=== PATIENT | female | born 1985 | race Caucasian/White ===

== ENCOUNTER → 2017-07-04 | Outpatient (CLI) | payer OTHER | LOC: FIMAGING 10:10 | PROVIDERS: ATTEND Obstetrics & Gynecology | DX: Z34.02 Encounter for supervision of normal first pregnancy, second trimester (principal); Z3A.22 22 weeks gestation of pregnancy; Z82.79 Family history of other congenital malformations, deformations and chromosomal abnormalities ==

== ENCOUNTER 2017-09-11 06:45 | Observation (INO) | payer OTHER ==
--- NOTE | 2017-09-11 18:55 | GPROG ---
[f rep st] PROGRESS NOTE DATE OF SERVICE: 09/11/2017 Patient is a 32-year-old 1, para 0, who is 32 weeks' gestation, who called this morning compl aining of increased cramping and menstrual-like cramping. She said she had several glasses of water, but the pain is not improved. The patient presented to Labor and Delivery for evaluation. She is n oted to have some contractions on the monitor, which were palpating very mild. The patient was barel y able to feel them. She says that she and her were in a 7-hour class yesterday for classes, and she did not drink much water, and her idea of drinking lots of fluid was having 1 big 8-ounce glass of water since yesterday. status was reassuring with category 1 heart tracing. A urinalysis was sent, and culture. A speculum exam and vaginal exam were performed. Fet al fibronectin was collected but not sent because her cervix was long, closed and posterior. We had a long discussion about options of in-house p.o. hydration and observation versus going home, and the patient elected to go home. precautions and kick counts were reviewed with the patient. Sean newman has a followup appointment tomorrow, and she will call us later on tonight if her contractions do not resolve or significantly reduce. /[id number]/MODL
== END 2017-09-11 08:22 | disposition home or self-care (01) ==
LOC: FLD 06:45
PROVIDERS: ADMIT Obstetrics & Gynecology; ATTEND Obstetrics & Gynecology
DX: O62.9 Abnormality of forces of labor, unspecified (principal); Z3A.32 32 weeks gestation of pregnancy
CPT/HCPCS: 59025; G0378

== ENCOUNTER 2017-11-03 20:45 | Inpatient (IN) | payer OTHER ==
[2017-11-03 22:35] LABS: PLATELET COUNT 142 10^3/uL (150-400)
[2017-11-03] MEDS ORDERED: LIDOCAINE 1% 300 MG/30 ML SDV SC PRN (23:30)
[2017-11-03] MEDS ORDERED: EPSOM SALT 454 GM TP PRN (23:30)
[2017-11-03] MEDS ORDERED: IBUPROFEN 600 MG TAB PO PRN (23:30)
[2017-11-03] MEDS ORDERED: OXYTOCIN/RINGERS LACTATE 1,000 ML IV PRN (23:30)
[2017-11-03] MEDS ORDERED: OLIVE OIL 118 ML BTL MISC PRN (23:30)
[2017-11-03] MEDS ORDERED: TERBUTALINE SULFATE 1 MG/ML VIAL IV PRN (23:30)
[2017-11-03] MEDS ORDERED: MISOPROSTOL 200 MCG TAB PR PRN (23:30)
[2017-11-04] MEDS ORDERED: OLIVE OIL 118 ML BTL ONE
[2017-11-04] MEDS ORDERED: MISOPROSTOL 200 MCG TAB ONE
[2017-11-04] MEDS ORDERED: AMMONIA AROMATIC 1 EACH AMP IH ONE
[2017-11-04] MEDS ORDERED: TERBUTALINE SULFATE 1 MG/ML VIAL ONE
[2017-11-04] MEDS ORDERED: OXYTOCIN 10 UNIT/ML VIAL ONE
[2017-11-04] MEDS ORDERED: LIDOCAINE 1% 300 MG/30 ML SDV ONE
[2017-11-04] MEDS ORDERED: MISOPROSTOL 50 MCG CAP PO ONE ×3 (00:15→04:00)
[2017-11-04] MEDS: LR 1,000 ML IV PRN ×2 (02:58→07:28)
[2017-11-04] MEDS ORDERED: AMPICILLIN SODIUM 2 GM in NS 100 ML IV ONE (05:00)
--- NOTE | 2017-11-04 05:31 | OBPROG ---
Labor Progress Note Assessment/Plan: Assessment: 32 y/o @ 40 3/7 weeks for IOL secondary to elevated BPs Cat II strip Meconium-stained fluid GBS+ Plan: Called in by Rn @0330 re: strip with minimal variability and intermittent late decels s/p Cytotec 100 mcg PO at 0030 Pt with SROM-meconium stained fluid at 0430 Reviewed strip-Cat II with periods of minimal variability, intermittent late decels resuscitation performed with IVFs wide open, oxygen applied and pt to left side with improvement in variability Pt reexamined after SROM and still noted to be /-2 Called Anesthesia in for possible c/s if continued minimal variability and late decels BPs stable while pt laying down; asymptomatic at this time PIH labs wnl; thromboctyopenia; P:C 0.3 Will cont to closely monitor the strip, low threshold for c/s since remote from delivery 11/04/17 05:46 Subjective/Intrapartum Course: 11/04/17 05:31 Pt seen and examined. She states pain with ctx's 3-4/10. Denies any BOOTH's, visual changes and states RUQ pain improved since baby boy moved down in pelvis. Good FM noted. Objective: 11/03/17 22:21 11/03/17 22:21 Patient ABO/Rh O POSITIVE 11/03/17 22:21 Uric Acid 5.6 mg/dL (2.5-6.8) 11/03/17 22:21 Total Bilirubin 0.3 mg/dL (0.1-1.4) 11/03/17 22:21 Conjugated Bilirubin 0.3 mg/dL (0.0-0.5) 11/03/17 22:21 Unconjugated Bilirubin 0.0 mg/dL (0.0-1.1) 11/03/17 22:21 AST 14 IU/L (14-46) 11/03/17 22:21 ALT 21 IU/L (9-52) 11/03/17 22:21 Lactate Dehydrogenase 347 IU/L (313-618) 11/03/17 22:21 - SVE Dilation (cm): 1 Effacement (%): 50 Station: -2 Membranes: SROM Amniotic Fluid Color: Meconium Stained - Contraction Pattern Assessment Current Contraction Pattern: Regular (q 2-3 min) - FHR Assessment Martinez FHR (bpm): 145 FHR Pattern Variability: Moderate FHR Category: 2 (periods of minimal variability; intermittent late decels noted) - AP Antepartum Course: 11/04/17 05:41 IUP @ 40 2/7 wks with c/o +brownish LOF, elev BPs on admission 160/100's; asymptomatic. Transfer of care at 20+weeks from [facility]. +GBS - Physical Exam Estimated Weight: 2501-3400g Oxytocin Orders Assessment - Pre-Induction/Augmentation Assessment Gestational Age: 40 week(s) and 2 day(s) ICD10 Worksheet Patient Problems: Problems Problem Status Onset Elevated blood pressure complicating in third trimester, antepartum Acute GBS (group B Streptococcus carrier), +RV culture, currently Acute Meconium in amniotic fluid affecting management of mother in third trimester Acute - ICD10 Problem Qualifiers (1) Elevated blood pressure complicating in third trimester, antepartum (2) Meconium in amniotic fluid affecting management of mother in third trimester (3) GBS (group B Streptococcus carrier), +RV culture, currently
--- NOTE | 2017-11-04 06:09 | GHP ---
[f rep st] HISTORY AND PHYSICAL DATE OF ADMISSION: 11/02/2017 ADMITTING DIAGNOSIS: 1. Intrauterine at 40 weeks and 2 days. 2. Leakage of fluid. 3. Elevated blood pressures. HISTORY OF PRESENT ILLNESS: The patient is a 32-year-old, 1, para 0, at 40 and 3 weeks, at 40 2/7 weeks with an estimated due date of 11/01/2017, by last menstrual period 02/04/2017, and consistent with a first-trimester ultrasound. Patient presents to Labor and Delivery with complaints of leakage of fluid. The patient states she was examined about 2 days ago in the office and was told she would have some spotting and cramping. She admits to losing her mucus plug, but states that she had a gush of fluid that was blood tinged earlier today, and then just about an hour ago also noticed a gush of fluid- brownish that was "enough to saturate her underwear." No odor noted. Denies any vaginal bleeding or contractions. States there is good movement. The patient was a transfer of care at 20 weeks, from [facility] in [place]. has been complicated by a placenta previa that was diagnosed in the first trimester and resolved on followup ultrasound. Father of the baby has a congenital heart defect, status post repair. The patient did have a echo that was negative at 22 weeks. The patient states she had a flu vaccine January 2017. NIPT was negative. The patient develop anemia of , and is tolerating iron. The patient received Tdap. At 36 weeks, the patient was complaining of pedal edema and RUQ pain. Denied any headaches or visual changes. PIH labs were checked as well as P to C ratio. All blood work was negative except for thrombocytopenia. P:C was 0.3. Blood pressures throughout the were normal: 90s to 1-teens over 60s to 70s with the P to C ratio 0.3. GBS culture is positive. PAST OB HISTORY: This is patient's 1st . PAST CERTIFIED NURSING ASSISTANT HISTORY: Age of menarche 12. Cycles are every 26-28 days for 5 days. LMP 01/25/2017. Positive test 02/24/2017. The patient does have a history of abnormal Pap smear, +HPV in 2006 and had a colposcopy, but no treatment. Abnormal pap-ASCUS, -HPV during this . 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 No exposure to any other STDs. CURRENT MEDICATIONS: Include [id number] vitamins, iron supplement. ALLERGIES: Sulfa and erythromycin. PAST MEDICAL HISTORY: Migraines with aura. PAST SURGICAL HISTORY: Unremarkable. She had a fractured right elbow at 5 years of age. FAMILY HISTORY: Maternal grandmother with a stroke. Father with depression, recovering alcoholic. Paternal aunt diagnosed with breast cancer in her 30s, in her 40s. Maternal aunt with breast cancer diagnosed in 60s. SOCIAL HISTORY: Patient is and she lives with her . She denies any current alcohol, tobacco, or illicit drug use. REVIEW OF SYSTEMS: A 10-point review of systems is negative. Pertinent positives noted in HPI. LABS: O positive. Antibody negative. H and H in 1st trimester 37.4 and 13. Rubella immune. RPR nonreactive. Hepatitis B surface antigen negative. HIV negative. Urine culture negative. NIPT negative. Single AFP negative. One hour Glucola normal. Hematocrit 37. GBS culture is positive. PHYSICAL EXAMINATION: VITAL SIGNS: The patient is afebrile at 37.2. On admission, heart rate 76, respiratory rate 18, and elevated blood [id number]/ 102, 146/100, 129/74, 164/115. GENERAL: Well-nourished, well-developed, female, alert oriented x3. No apparent distress. NEUROMUSCULAR: Grossly intact. SKIN : Warm and dry without rashes. CARDIOVASCULAR: Regular rate and rhythm. LUNGS : Clear to auscultation bilaterally. ABDOMEN: Gravid, soft, nontender, nondistended. PELVIC: Noted to be 1 cm dilated, 50%, -2 station, and not grossly ruptured. AmniSure is negative. EXTREMITIES: Normal to inspection with mild edema. +1 reflexes. No clonus. heart tracing on admission, Category 1 strip with a baseline 140 beats per minute. Positive accelerations. No decelerations. Moderate variability. On toco, there are occasional contractions. LABORATORY DATA: H and H 13/36.5, platelets 142. Uric acid 5.6. AST 14, ALT 21. LDH 347. P to C ratio of 0.2. ASSESSMENT/PLAN: Patient is a 32-year-old, 1, para 0, at 40 weeks and 2 days with elevated blood pressures, not ruptured. 1. Admit to Labor and Delivery. 2. Patient does not meet criteria for GHTN since elevated BPs not 4 hours apart. PIH labs all normal except for thrombocytopenia and P to C ratio is 0.2; pt is asymptomatic so no preeclampsia at this time. 3. Plan for IOL secondary to elevated BPs; Cytotec 100 mcg q.4 hours orally for cervical ripening. 4. GBS is positive. Once patient is active will treat with ampicillin for prophylaxis. 5. Will continue to closely monitor the patient's blood pressures and symptoms. /[id number]/MODL MTDD
[2017-11-04] MEDS ORDERED: fentaNYL 200 MCG, BUPIVACAINE 0.5% 20 ML in NS 100 ML EP SCH (07:30)
[2017-11-04] MEDS ORDERED: fentaNYL 100 MCG/2 ML INJ ONE ×3 (07:33→19:24)
[2017-11-04] MEDS ORDERED: BUPIVACAINE 0.25% 30 ML SDV ONE ×2 (07:34→15:11)
[2017-11-04] MEDS ORDERED: LIDO/EPI 1% **for epidural** 30 ML SDV ONE (07:55)
[2017-11-04] MEDS ORDERED: PHENYLEPHRINE HCL 100 MCG/ML SYR IVP PRN (08:23)
[2017-11-04] MEDS ORDERED: ONDANSETRON 4 MG/2 ML VIAL IVP PRN ×2 (08:23→19:56)
--- NOTE | 2017-11-04 08:23 | PREANESOB ---
Obstetric Pre-Anesthesia Info - General Info Proposed Procedure: virginie : 1 Para: 0 BENITEZ: 11/01/17 Gestational Age: 40 week(s) and 2 day(s) - Info Status: Full Term Monitors: External FHR Pattern: Non-reassuring - Labor Status Cervical Dilation per last OB SVE: 1 Station per last OB SVE: -2 Amniotic Fluid Color: Meconium Stained Indications for Labor Analgesia: Augmentation of Labor, Induction of Labor, Pain Control, Possible Indications for Current Section: Non-reas. Status Labor Epidural: Yes Anesthesia Allergies/Adverse Reactions: Allergy/AdvReac Type Severity Reaction Status Date / Time erythromycin base Allergy Verified 11/03/17 21:33 Sulfa (Sulfonamide Allergy Verified 11/03/17 21:33 Antibiotics) Home Medications: Medication Instructions Recorded Iron 11/04/17 11/04/17 Visit Medications: Generic Name Dose Route Start Last Admin Trade Name Freq PRN Reason Stop Dose Admin Ampicillin Sodium 1 gm/ Sodium 100 mls @ 200 mls/hr 11/04/17 09:00 Chloride IV 12/04/17 08:59 Q4H [facility] Protocol Lactated Ringer's 1,000 mls @ 0 mls/hr 11/03/17 23:30 11/04/17 07:28 Lr IV 11/04/17 23:29 1,000 mls PRN PRN Administration SEE PROTOCOL CONDITIONS Protocol Per Protocol Oxytocin/Lactated Ringer's 1,000 mls @ 125 mls/hr 11/03/17 23:30 Pitocin 20 Units/Lr (Premix) IV PRN PRN Post bleeding Fentanyl 200 mcg/ Bupivacaine 100 mls @ 0 mls/hr 11/04/17 07:30 HCl 20 ml/ Sodium Chloride EP 11/14/17 07:29 CONT [facility] Protocol As Directed Ibuprofen 600 mg 11/03/17 23:30 Motrin PO ONCE PRN post , pain Lidocaine HCl 300 mg 11/03/17 23:30 Lidocaine Hcl 1% SC 05/02/18 23:29 ONCE PRN episiotomy Magnesium Sulfate 454 gm 11/03/17 23:30 Epsom Salt TP 05/02/18 23:29 Q1H PRN perineal discomfort Misoprostol 800 - 1,000 mcg 11/03/17 23:30 Cytotec MN ONCE PRN Vaginal Atony/Bleeding Calvin Oil 118 ml 11/03/17 23:30 Sweet Oil MISC 05/02/18 23:29 ONCE PRN perineal massage Terbutaline Sulfate 0.25 mg 11/03/17 23:30 Brethine IV 05/02/18 23:29 ONCE PRN Tachysystole Discontinued Medications Generic Name Dose Route Start Last Admin Trade Name Freddy PRN Reason Stop Dose Admin Ammonia (Aromatic Spirit) Confirm 11/04/17 00:00 Ammonia Aromatic Administered 11/04/17 00:01 Dose 1 each IH .STK-MED ONE Bupivacaine HCl Confirm 11/04/17 07:34 Sensorcaine 0.25% Sdv Administered 11/04/17 07:35 Dose 30 ml .ROUTE .STK-MED ONE Fentanyl Confirm 11/04/17 07:33 Sublimaze Administered 11/04/17 07:34 Dose 100 mcg .ROUTE .STK-MED ONE Ampicillin Sodium 2 gm/ Sodium 110 mls @ 220 mls/hr 11/04/17 05:00 11/04/17 04:49 Chloride IV 11/04/17 05:29 110 mls ONCE ONE Administration Protocol Lidocaine HCl Confirm 11/04/17 00:00 Lidocaine Hcl 1% Administered 11/04/17 00:01 Dose 300 mg .ROUTE .STK-MED ONE Lidocaine/Epinephrine Confirm 11/04/17 07:55 Xylocaine 1%-Epi 1:200,000 Administered 11/04/17 07:56 Dose 30 ml .ROUTE .STK-MED ONE Misoprostol 50 mcg 11/04/17 00:00 11/04/17 00:39 Cytotec PO 11/04/17 00:01 Not Given ONCE ONE Misoprostol 50 mcg 11/04/17 04:00 11/04/17 05:16 Cytotec PO 11/04/17 04:01 Not Given ONCE ONE Misoprostol Confirm 11/04/17 00:00 Cytotec Administered 11/04/17 00:01 Dose 1,000 mcg .ROUTE .STK-MED ONE Misoprostol 100 mcg 11/04/17 00:15 11/04/17 00:33 Cytotec PO 11/04/17 00:16 100 mcg ONCE ONE Administration Calvin Oil Confirm 11/04/17 00:00 Sweet Oil Administered 11/04/17 00:01 Dose 118 ml .ROUTE .STK-MED ONE Oxytocin Confirm 11/04/17 00:00 Pitocin Administered 11/04/17 00:01 Dose 40 unit .ROUTE .STK-MED ONE Terbutaline Sulfate Confirm 11/04/17 00:00 Brethine Administered 11/04/17 00:01 Dose 1 mg .ROUTE .STK-MED ONE - Vital Signs Height/Weight (Nursing): Height 5 ft 4 in Weight 83.007 kg Labs: 11/03/17 22:21 11/03/17 22:21 Patient ABO/Rh O POSITIVE 11/03/17 22:21 Uric Acid 5.6 mg/dL (2.5-6.8) 11/03/17 22:21 Total Bilirubin 0.3 mg/dL (0.1-1.4) 11/03/17 22:21 Conjugated Bilirubin 0.3 mg/dL (0.0-0.5) 11/03/17 22:21 Unconjugated Bilirubin 0.0 mg/dL (0.0-1.1) 11/03/17 22:21 AST 14 IU/L (14-46) 11/03/17 22:21 ALT 21 IU/L (9-52) 11/03/17 22:21 Lactate Dehydrogenase 347 IU/L (313-618) 11/03/17 22:21
[2017-11-04] MEDS ORDERED: fentaNYL 2MCG/ML/BUP 0.1% RTU 100 ML EP SCH (08:30)
[2017-11-04] MEDS ORDERED: LR 500 ML IV SCH (08:30)
[2017-11-04] MEDS: AMPICILLIN SODIUM 1 GM in NS 100 ML IV SCH ×3 (09:04→23:42)
--- NOTE | 2017-11-04 10:25 | OBPROG ---
Labor Progress Note Assessment/Plan: Assessment: IUP at 40+wks gest hypertension, labs normal, b/p improved after ELYSE SROM clear, +GBS rec'd 2nd dose abx now Plan: cx stretched to /-1 will begin pitocin Cat I tracing, very minimal BTBV with sleep cycles 11/04/17 10:21 Subjective/Intrapartum Course: 11/04/17 05:31 Pt seen and examined. She states pain with ctx's 3-08/01. Denies any BOOTH's, visual changes and states RUQ pain improved since baby boy moved down in pelvis. Good FM noted. 11/04/17 10:23 Pt doing fine with ELYSE, was pretty uncomf with back pain prior to ELYSE. Very sleepy. disc pitocin and pt/husb understand. b/p stable Objective: 11/03/17 22:21 11/03/17 22:21 Patient ABO/Rh O POSITIVE 11/03/17 22:21 Uric Acid 5.6 mg/dL (2.5-6.8) 11/03/17 22:21 Total Bilirubin 0.3 mg/dL (0.1-1.4) 11/03/17 22:21 Conjugated Bilirubin 0.3 mg/dL (0.0-0.5) 11/03/17 22:21 Unconjugated Bilirubin 0.0 mg/dL (0.0-1.1) 11/03/17 22:21 AST 14 IU/L (14-46) 11/03/17 22:21 ALT 21 IU/L (9-52) 11/03/17 22:21 Lactate Dehydrogenase 347 IU/L (313-618) 11/03/17 22:21 - SVE Dilation (cm): 3 Effacement (%): 90 Station: -1 Membranes: SROM Amniotic Fluid Color: Meconium Stained ('mec' noted with SROM but no signs of mec now - clear fluid - no odor) - Contraction Pattern Assessment Current Contraction Pattern: Regular (q 3-5 min, mild palpably) - FHR Assessment Martinez FHR (bpm): 130 FHR Pattern Variability: Moderate FHR Category: 1 (at times, exaggerated BTBV, some early decels, with sleep cycles - minimal BTBV) - AP Antepartum Course: 11/04/17 05:41 IUP @ 40 2/7 wks with c/o +brownish LOF, elev BPs on admission 160/100's; asymptomatic. Transfer of care at 20+weeks from [facility]. +GBS - Physical Exam Estimated Weight: 2501-3400g Oxytocin Orders Assessment - Pre-Induction/Augmentation Assessment Indication: SROM, protracted labor Presentation: Vertex, Other (Specify) (hard to tell with position up high and tight pelvis) Gestational Age: 40 week(s) and 2 day(s) Estimated Weight: 2501-3400g Membrane Status: Ruptured Current Sterile Vaginal Exam (SVE): /-1 Current Contraction Pattern: Regular (q 3-5, mild) - Heart Rate Pattern Martinez FHR Baseline (bpm): 130 FHR Category: 1 FHR Pattern Variability: Moderate FHR Accelerations: Present FHR Decelerations: Early - Gibson's Score Dilation: 3-4cm Effacement: 80+ Station: -1,0 Cervix: Soft Cervix Position: Mid Gibson Score Total: 10 - Induction/Augmentation Consent Risks/Benefits of Procedure Reviewed/Pt Agrees to Proceed: Yes ICD10 Worksheet Patient Problems: Problems Problem Status Onset Elevated blood pressure complicating in third trimester, antepartum Acute GBS (group B Streptococcus carrier), +RV culture, currently Acute Meconium in amniotic fluid affecting management of mother in third trimester Acute
[2017-11-04] MEDS ORDERED: LR 500 ML IV PRN (10:30)
[2017-11-04] MEDS ORDERED: OXYTOCIN/RINGERS LACTATE 500 ML IV SCH (10:30)
[2017-11-04] MEDS ORDERED: ACETAMINOPHEN 500 MG TAB PO ONE (14:25)
--- NOTE | 2017-11-04 14:30 | OBPROG ---
Labor Progress Note Assessment/Plan: Assessment: IUP at 40+wks gest hypertension, labs normal, b/p improved after ELYSE SROM clear, +GBS rec'd 2nd dose abx now Plan: cx still will begin pitocin Cat I tracing often with early decels, but Cat II with marked variability and variable decels at times and very minimal BTBV with sleep cycles 11/04/17 10:21 11/04/17 14:27 Subjective/Intrapartum Course: 11/04/17 05:31 Pt seen and examined. She states pain with ctx's 3-08/01. Denies any BOOTH's, visual changes and states RUQ pain improved since baby boy moved down in pelvis. Good FM noted. 11/04/17 10:23 Pt doing fine with ELYSE, was pretty uncomf with back pain prior to ELYSE. Very sleepy. disc pitocin and pt/husb understand. b/p stable 11/04/17 14:30 Pt doing fine - has slept some, doing ok with the waiting. disc IUPC if cx unchanged to better eval. Disc difficult pattern with pit and ctxns that become too frequent but not build in strength. Aware cx clear fluid .. also reports mild headache. B/P stable 120-140s/80s 11/04/17 14:33 Objective: 11/03/17 22:21 11/03/17 22:21 Patient ABO/Rh O POSITIVE 11/03/17 22:21 Uric Acid 5.6 mg/dL (2.5-6.8) 11/03/17 22:21 Total Bilirubin 0.3 mg/dL (0.1-1.4) 11/03/17 22:21 Conjugated Bilirubin 0.3 mg/dL (0.0-0.5) 11/03/17 22:21 Unconjugated Bilirubin 0.0 mg/dL (0.0-1.1) 11/03/17 22:21 AST 14 IU/L (14-46) 11/03/17 22:21 ALT 21 IU/L (9-52) 11/03/17 22:21 Lactate Dehydrogenase 347 IU/L (313-618) 11/03/17 22:21 - SVE Dilation (cm): 3 Effacement (%): 90 Station: -1 Membranes: SROM Amniotic Fluid Color: Meconium Stained ('mec' noted with SROM but no signs of mec now - clear fluid - no odor) - Contraction Pattern Assessment Current Contraction Pattern: Regular (q 2 min on 3-4 mu/min pit - adjusting for tachysystole) - FHR Assessment Martinez FHR (bpm): 140 FHR Pattern Variability: Moderate, Marked FHR Category: 3 - Procedures Non-surgical Procedures: IUPC - AP Antepartum Course: 11/04/17 05:41 IUP @ 40 2/7 wks with c/o +brownish LOF, elev BPs on admission 160/100's; asymptomatic. Transfer of care at 20+weeks from [facility]. +GBS - Physical Exam Estimated Weight: 2501-3400g Oxytocin Orders Assessment - Pre-Induction/Augmentation Assessment Presentation: Vertex, Other (Specify) (hard to tell with position up high and tight pelvis) Gestational Age: 40 week(s) and 2 day(s) Estimated Weight: 2501-3400g ICD10 Worksheet Patient Problems: Problems Problem Status Onset Elevated blood pressure complicating in third trimester, antepartum Acute GBS (group B Streptococcus carrier), +RV culture, currently Acute Meconium in amniotic fluid affecting management of mother in third trimester Acute
--- NOTE | 2017-11-04 16:11 | OBPROG ---
Labor Progress Note Assessment/Plan: Assessment: IUP at 40+wks gest hypertension, labs normal, b/p improved after ELYSE SROM clear, was noted as mec with initial fluid at 4:33 am +GBS, on abx Plan: complete now/0 station on 3 mu/min pit, FHTs Cat I with early decels with pushing 11/04/17 10:21 11/04/17 14:27 11/04/17 16:06 Subjective/Intrapartum Course: 11/04/17 05:31 Pt seen and examined. She states pain with ctx's 3-08/01. Denies any BOOTH's, visual changes and states RUQ pain improved since baby boy moved down in pelvis. Good FM noted. 11/04/17 10:23 Pt doing fine with ELYSE, was pretty uncomf with back pain prior to ELYSE. Very sleepy. disc pitocin and pt/husb understand. b/p stable 11/04/17 14:30 Pt doing fine - has slept some, doing ok with the waiting. disc IUPC if cx unchanged to better eval. Disc difficult pattern with pit and ctxns that become too frequent but not build in strength. Aware cx 390/-1 clear fluid .. also reports mild headache. B/P stable 120-140s/80s 11/04/17 14:33 11/04/17 16:11 Pt doing better after ELYSE redosed....feeling a lot of pressure and vag check reveals 10/100/0 with caput. Pt has begun pushing. variables with delayed recovery Objective: 11/03/17 22:21 11/03/17 22:21 Patient ABO/Rh O POSITIVE 11/03/17 22:21 Uric Acid 5.6 mg/dL (2.5-6.8) 11/03/17 22:21 Total Bilirubin 0.3 mg/dL (0.1-1.4) 11/03/17 22:21 Conjugated Bilirubin 0.3 mg/dL (0.0-0.5) 11/03/17 22:21 Unconjugated Bilirubin 0.0 mg/dL (0.0-1.1) 11/03/17 22:21 AST 14 IU/L (14-46) 11/03/17 22:21 ALT 21 IU/L (9-52) 11/03/17 22:21 Lactate Dehydrogenase 347 IU/L (313-618) 11/03/17 22:21 - SVE Dilation (cm): 10 Effacement (%): 100 Station: 0 Membranes: SROM Amniotic Fluid Color: Meconium Stained ('mec' noted with SROM but no signs of mec now - clear fluid - no odor) Dilation Complete Date: 11/04/17 Dilation Complete Time: 15:50 - Contraction Pattern Assessment Current Contraction Pattern: Regular (q 3 min) - FHR Assessment Martinez FHR (bpm): 140 FHR Pattern Variability: Moderate FHR Category: 2 (variables with ctxns with some slow recovery) - Procedures Non-surgical Procedures: IUPC - AP Antepartum Course: 11/04/17 05:41 IUP @ 40 2/7 wks with c/o +brownish LOF, elev BPs on admission 160/100's; asymptomatic. Transfer of care at 20+weeks from [facility]. +GBS - Physical Exam Estimated Weight: 2501-3400g Oxytocin Orders Assessment - Pre-Induction/Augmentation Assessment Presentation: Vertex, Other (Specify) (hard to tell with position up high and tight pelvis) Gestational Age: 40 week(s) and 2 day(s) Estimated Weight: 2501-3400g ICD10 Worksheet Patient Problems: Problems Problem Status Onset Elevated blood pressure complicating in third trimester, antepartum Acute GBS (group B Streptococcus carrier), +RV culture, currently Acute Meconium in amniotic fluid affecting management of mother in third trimester Acute
[2017-11-04] MEDS ORDERED: CITRIC ACID/SODIUM CITRATE 30 ML UDCUP ONE (17:53)
[2017-11-04] MEDS ORDERED: ceFAZolin 2 GM/DEXTROSE 100 ML IV ONE (17:59)
--- NOTE | 2017-11-04 18:00 | PREANESOB ---
Obstetric Pre-Anesthesia Info - General Info Proposed Procedure: NPO Start Time: 00:00 : 1 Para: 0 BENITEZ: 11/01/17 Gestational Age: 40 week(s) and 2 day(s) - Info Status: Full Term, Martinez FHR Pattern: Non-reassuring - Labor Status Cervical Dilation per last OB SVE: 10 Station per last OB SVE: 0 Amniotic Fluid Color: Meconium Stained ('mec' noted with SROM but no signs of mec now - clear fluid - no odor) Indications for Current Section: Non-reas. Status Labor Epidural: Yes (in situ) Anesthesia Allergies/Adverse Reactions: Allergy/AdvReac Type Severity Reaction Status Date / Time erythromycin base Allergy Verified 11/03/17 21:33 Sulfa (Sulfonamide Allergy Verified 11/03/17 21:33 Antibiotics) Home Medications: Medication Instructions Recorded Iron 11/04/17 11/04/17 Visit Medications: Generic Name Dose Route Start Last Admin Trade Name Freq PRN Reason Stop Dose Admin Ephedrine Sulfate 10 mg 11/04/17 08:23 Ephedrine Sulfate IV 05/03/18 08:22 .Q2M PRN Hypotension Ampicillin Sodium 1 gm/ Sodium 100 mls @ 200 mls/hr 11/04/17 09:00 11/04/17 13:07 Chloride IV 12/04/17 08:59 100 mls Q4H LUZ ELENA Administration Protocol Lactated Ringer's 1,000 mls @ 0 mls/hr 11/03/17 23:30 11/04/17 07:28 Lr IV 11/04/17 23:29 1,000 mls PRN PRN Administration SEE PROTOCOL CONDITIONS Protocol Per Protocol Oxytocin/Lactated Ringer's 1,000 mls @ 125 mls/hr 11/03/17 23:30 Pitocin 20 Units/Lr (Premix) IV PRN PRN Post bleeding Fentanyl 200 mcg/ Bupivacaine 100 mls @ 0 mls/hr 11/04/17 07:30 11/04/17 08: 27 HCl 20 ml/ Sodium Chloride EP 11/14/17 07:29 100 mls CONT LUZ ELENA Administration Protocol As Directed Lactated Ringer's 500 mls @ 0 mls/hr 11/04/17 08:30 Lr IV 05/03/18 08:29 CONT LUZ ELENA As Directed Lactated Ringer's 500 mls @ 500 mls/hr 11/04/17 10:30 Lr IV 11/05/17 10:30 PRN PRN Maternal Hypotension Oxytocin/Lactated Ringer's 500 mls @ 0 mls/hr 11/04/17 10:30 11/04/17 10:50 Pitocin 30 Units/Lr (Premix) IV 05/03/18 10:29 500 mls CONT LUZ ELENA Administration Protocol Per Protocol Ibuprofen 600 mg 11/03/17 23:30 Motrin PO ONCE PRN post , pain Lidocaine HCl 300 mg 11/03/17 23:30 Lidocaine Hcl 1% SC 05/02/18 23:29 ONCE PRN episiotomy Magnesium Sulfate 454 gm 11/03/17 23:30 Epsom Salt TP 05/02/18 23:29 Q1H PRN perineal discomfort Misoprostol 800 - 1,000 mcg 11/03/17 23:30 Cytotec AR ONCE PRN Vaginal Atony/Bleeding [place] Oil 118 ml 11/03/17 23:30 Sweet Oil MISC 05/02/18 23:29 ONCE PRN perineal massage Ondansetron HCl 4 mg 11/04/17 08:23 Zofran IVP 11/05/17 08:22 Q4HRS PRN Nausea/Vomiting, Can't Take PO Phenylephrine HCl 100 mcg 11/04/17 08:23 Neosynephrine IVP 05/03/18 08:22 .Q2M PRN Hypotension Terbutaline Sulfate 0.25 mg 11/03/17 23:30 Brethine IV 05/02/18 23:29 ONCE PRN Tachysystole Discontinued Medications Generic Name Dose Route Start Last Admin Trade Name Freddy PRN Reason Stop Dose Admin Acetaminophen 1,000 mg 11/04/17 14:25 11/04/17 14:33 Tylenol PO 11/04/17 14:26 1,000 mg ONCE ONE Administration Ammonia (Aromatic Spirit) Confirm 11/04/17 00:00 Ammonia Aromatic Administered 11/04/17 00:01 Dose 1 each IH .STK-MED ONE Bupivacaine HCl Confirm 11/04/17 07:34 Sensorcaine 0.25% Sdv Administered 11/04/17 07:35 Dose 30 ml .ROUTE .STK-MED ONE Bupivacaine HCl Confirm 11/04/17 15:11 Sensorcaine 0.25% Sdv Administered 11/04/17 15:12 Dose 30 ml .ROUTE .STK-MED ONE Citric Acid/Sodium Citrate Confirm 11/04/17 17:53 Bicitra Administered 11/04/17 17:54 Dose 30 ml .ROUTE .STK-MED ONE Fentanyl Confirm 11/04/17 07:33 Sublimaze Administered 11/04/17 07:34 Dose 100 mcg .ROUTE .STK-MED ONE Ampicillin Sodium 2 gm/ Sodium 110 mls @ 220 mls/hr 11/04/17 05:00 11/04/17 04:49 Chloride IV 11/04/17 05:29 110 mls ONCE ONE Administration Protocol Fentanyl/Bupivacaine HCl 100 mls @ 0 mls/hr 11/04/17 08:30 Fentanyl/Bupivacaine/Ns 2 Mcg/Ml 0.1% (Premix EP 11/14/17 08:29 CONT LUZ ELENA Protocol As Directed Lidocaine HCl Confirm 11/04/17 00:00 Lidocaine Hcl 1% Administered 11/04/17 00:01 Dose 300 mg .ROUTE .STK-MED ONE Lidocaine/Epinephrine Confirm 11/04/17 07:55 Xylocaine 1%-Epi 1:200,000 Administered 11/04/17 07:56 Dose 30 ml .ROUTE .STK-MED ONE Misoprostol 50 mcg 11/04/17 00:00 11/04/17 00:39 Cytotec PO 11/04/17 00:01 Not Given ONCE ONE Misoprostol 50 mcg 11/04/17 04:00 11/04/17 05:16 Cytotec PO 11/04/17 04:01 Not Given ONCE ONE Misoprostol Confirm 11/04/17 00:00 Cytotec Administered 11/04/17 00:01 Dose 1,000 mcg .ROUTE .STK-MED ONE Misoprostol 100 mcg 11/04/17 00:15 11/04/17 00:33 Cytotec PO 11/04/17 00:16 100 mcg ONCE ONE Administration [place] Oil Confirm 11/04/17 00:00 Sweet Oil Administered 11/04/17 00:01 Dose 118 ml .ROUTE .STK-MED ONE Oxytocin Confirm 11/04/17 00:00 Pitocin Administered 11/04/17 00:01 Dose 40 unit .ROUTE .STK-MED ONE Terbutaline Sulfate Confirm 11/04/17 00:00 Brethine Administered 11/04/17 00:01 Dose 1 mg .ROUTE .STK-MED ONE - Anesthesia History Response to Local Anesthetics: Normal Anesthesia & Operative History: No Prior Problems Family Anesthesia History: Not Applicable - Social History Substance Use/Abuse: Denies - Vital Signs Latest Vital Signs (Nursing): see nursing Height/Weight (Nursing): Height 162.56 cm Weight 83.007 kg - Focused Exam Neck exam: FROM Mallampati Score: Class 2 Mouth exam: normal dental/mouth exam Labs: 11/03/17 22:21 11/03/17 22:21 Patient ABO/Rh O POSITIVE 11/03/17 22:21 Uric Acid 5.6 mg/dL (2.5-6.8) 11/03/17 22:21 Total Bilirubin 0.3 mg/dL (0.1-1.4) 11/03/17 22:21 Conjugated Bilirubin 0.3 mg/dL (0.0-0.5) 11/03/17 22:21 Unconjugated Bilirubin 0.0 mg/dL (0.0-1.1) 11/03/17 22:21 AST 14 IU/L (14-46) 11/03/17 22:21 ALT 21 IU/L (9-52) 11/03/17 22:21 Lactate Dehydrogenase 347 IU/L (313-618) 11/03/17 22:21 - Plan Anesthetic Plan: augment Epidural, GETA backup Consent Signed and on Chart: Yes Patient/Guardian Understands and Agrees to Plan: Yes
--- NOTE | 2017-11-04 18:05 | OBPROG ---
Labor Progress Note Assessment/Plan: Assessment: IUP at 40+wks gest hypertension, labs normal, b/p improved after ELYSE SROM clear, was noted as mec with initial fluid at 4:33 am +GBS, on abx Pt pushing for approx 1 1/2 feeling increasing pressure and times of intolerance and pt now declines pushing any further and desires c/s for delivery. Pt brings baby down to +1 station with pushing and option of attempting VAVD was discussed. pt declines - does not feel things are going right and wants c/s Plan: Prep for c/s and ancef, replace black, anesth dosing ELYSE now 11/04/17 10:21 11/04/17 14:27 11/04/17 16:06 11/04/17 18:01 Subjective/Intrapartum Course: 11/04/17 05:31 Pt seen and examined. She states pain with ctx's 3-4/10. Denies any BOOTH's, visual changes and states RUQ pain improved since baby boy moved down in pelvis. Good FM noted. 11/04/17 10:23 Pt doing fine with ELYSE, was pretty uncomf with back pain prior to ELYSE. Very sleepy. disc pitocin and pt/husb understand. b/p stable 11/04/17 14:30 Pt doing fine - has slept some, doing ok with the waiting. disc IUPC if cx unchanged to better eval. Disc difficult pattern with pit and ctxns that become too frequent but not build in strength. Aware cx 3/90/-1 clear fluid .. also reports mild headache. B/P stable 120-140s/80s 11/04/17 14:33 11/04/17 16:11 Pt doing better after ELYSE redosed....feeling a lot of pressure and vag check reveals 10/100/0 with caput. Pt has begun pushing. variables with delayed recovery 11/04/17 18:03 pt very uncomf with pressure with pushing despite bolus x2, making great effort - slow change and baby goes right back behind symph after push. disc VAVD and pt and husb want to proceed with c/s Objective: 11/03/17 22:21 11/03/17 22:21 Patient ABO/Rh O POSITIVE 11/03/17 22:21 Uric Acid 5.6 mg/dL (2.5-6.8) 11/03/17 22:21 Total Bilirubin 0.3 mg/dL (0.1-1.4) 11/03/17 22:21 Conjugated Bilirubin 0.3 mg/dL (0.0-0.5) 11/03/17 22:21 Unconjugated Bilirubin 0.0 mg/dL (0.0-1.1) 11/03/17 22:21 AST 14 IU/L (14-46) 11/03/17 22:21 ALT 21 IU/L (9-52) 11/03/17 22:21 Lactate Dehydrogenase 347 IU/L (313-618) 11/03/17 22:21 - SVE Dilation (cm): 10 Effacement (%): 100 Station: 0 Membranes: SROM Amniotic Fluid Color: Meconium Stained ('mec' noted with SROM but no signs of mec now - clear fluid - no odor) Dilation Complete Date: 11/04/17 Dilation Complete Time: 15:50 - Contraction Pattern Assessment Current Contraction Pattern: Regular (q 3 min) - FHR Assessment Martinez FHR (bpm): 160 FHR Pattern Variability: Minimal FHR Category: 2 (currently low variability and higher baseline but not lates) - Procedures Non-surgical Procedures: IUPC - AP Antepartum Course: 11/04/17 05:41 IUP @ 40 2/7 wks with c/o +brownish LOF, elev BPs on admission 160/100's; asymptomatic. Transfer of care at 20+weeks from [facility]. +GBS - Physical Exam Estimated Weight: 2501-3400g Oxytocin Orders Assessment - Pre-Induction/Augmentation Assessment Presentation: Vertex, Other (Specify) (hard to tell with position up high and tight pelvis) Gestational Age: 40 week(s) and 2 day(s) Estimated Weight: 2501-3400g ICD10 Worksheet Patient Problems: Problems Problem Status Onset Elevated blood pressure complicating in third trimester, antepartum Acute Meconium in amniotic fluid affecting management of mother in third trimester Acute GBS (group B Streptococcus carrier), +RV culture, currently Acute
[2017-11-04] MEDS ORDERED: LIDOCAINE 2% 5 ML SDV ONE (18:23)
[2017-11-04] MEDS ORDERED: OXYTOCIN 100 UNITS/10 ML VIAL ONE (18:24)
[2017-11-04] MEDS ORDERED: morphINE PF 5 MG/10 ML INJ ONE ×2 (18:43→20:03)
[2017-11-04] MEDS ORDERED: METHYLERGONOVINE MAL 0.2 MG/ML INJ ONE (18:43)
[2017-11-04] MEDS ORDERED: HEMABATE 250 MCG/1 ML AMP IM ONE (18:43)
[2017-11-04] MEDS ORDERED: PROPOFOL 200 MG/20 ML VIAL ONE (19:28)
[2017-11-04] MEDS ORDERED: HYDROCODONE/APAP 5/325 TAB PO PRN (19:56)
[2017-11-04] MEDS ORDERED: OXYCODONE/APAP 5/325 TAB PO PRN (19:56)
[2017-11-04] MEDS ORDERED: NALOXONE HCL 0.4 MG/ML INJ IVP PRN ×2 (19:56→19:58)
[2017-11-04] MEDS ORDERED: HYDROmorphONE/DILAUDID 1 MG/ML INJ IVP PRN (19:56)
[2017-11-04] MEDS ORDERED: fentaNYL 100 MCG/2 ML INJ IVP PRN (19:56)
--- NOTE | 2017-11-04 19:56 | POSTANESTH ---
Post Anesthetic Evaluation Cardiovascular Status: Normal, Stable, Similar to Pre-Op Cond Respiratory Status: Normal, Stable, Similar to Pre-op Cond. Level of Consciousness/Mental Status: Can Participate in Eval, Alert and Oriented Pain Control: Adequate, Prn Tx Ordered Nausea/Vomiting Control: Adequate, Prn Tx Ordered Complications Possibly Related to Anesthesia: None Noted
[2017-11-04] MEDS ORDERED: BISACODYL 10 MG SUPP PR PRN (20:06)
[2017-11-04] MEDS ORDERED: LACTULOSE 20 GM/30 ML UDCUP PO PRN (20:06)
[2017-11-04] MEDS ORDERED: MAGNESIUM HYDROXIDE 30 ML UDCUP PO PRN (20:06)
[2017-11-04] MEDS ORDERED: POLYETHYLENE GLYCOL 3350 17 GM PKT PO PRN (20:06)
[2017-11-04] MEDS ORDERED: KETOROLAC 30 MG/1 ML SDV ONE (20:19)
[2017-11-04] MEDS: KETOROLAC 30 MG/1 ML SDV IVP SCH (20:24)
--- NOTE | 2017-11-04 20:25 | OBDEL ---
Info Type: Primary Presentation at Delivery: Vertex L&D Analgesia/Anesthesia Type: Epidural GBS+: Yes Antibiotic Used for + GBS: Ampicillin (Ancef also given preop) Intrapartum Medications: Generic Name Dose Route Start Last Admin Trade Name Freddy PRN Reason Stop Dose Admin Lactated Ringer's 1,000 mls @ 0 mls/hr 11/03/17 23:30 11/04/17 07:28 Lr IV 11/04/17 23:29 1,000 mls PRN PRN Administration SEE PROTOCOL CONDITIONS Protocol Per Protocol Fentanyl 200 mcg/ Bupivacaine 100 mls @ 0 mls/hr 11/04/17 07:30 11/04/17 08: 27 HCl 20 ml/ Sodium Chloride EP 11/14/17 07:29 100 mls CONT LUZ ELENA Administration Protocol As Directed Oxytocin/Lactated Ringer's 500 mls @ 0 mls/hr 11/04/17 10:30 11/04/17 10:50 Pitocin 30 Units/Lr (Premix) IV 05/03/18 10:29 500 mls CONT LUZ ELENA Administration Protocol Per Protocol Discontinued Medications Generic Name Dose Route Start Last Admin Trade Name Freddy PRN Reason Stop Dose Admin Acetaminophen 1,000 mg 11/04/17 14:25 11/04/17 14:33 Tylenol PO 11/04/17 14:26 1,000 mg ONCE ONE Administration Ampicillin Sodium 2 gm/ Sodium 110 mls @ 220 mls/hr 11/04/17 05:00 11/04/17 04:49 Chloride IV 11/04/17 05:29 110 mls ONCE ONE Administration Protocol Ampicillin Sodium 1 gm/ Sodium 100 mls @ 200 mls/hr 11/04/17 09:00 11/04/17 13:07 Chloride IV 12/04/17 08:59 100 mls Q4H LUZ ELENA Administration Protocol Misoprostol 50 mcg 11/04/17 00:00 11/04/17 00:39 Cytotec PO 11/04/17 00:01 Not Given ONCE ONE Misoprostol 50 mcg 11/04/17 04:00 11/04/17 05:16 Cytotec PO 11/04/17 04:01 Not Given ONCE ONE Misoprostol 100 mcg 11/04/17 00:15 11/04/17 00:33 Cytotec PO 11/04/17 00:16 100 mcg ONCE ONE Administration - Infant Care Provider [place] Machine Tender/TRACTOR SWEEPER OPERATOR: Betty Juárez - Hospital Course Intrapartum: 11/04/17 05:31 Pt seen and examined. She states pain with ctx's 3-10. Denies any BOOTH's, visual changes and states RUQ pain improved since baby boy moved down in pelvis. Good FM noted. 11/04/17 10:23 Pt doing fine with ELYSE, was pretty uncomf with back pain prior to ELYSE. Very sleepy. disc pitocin and pt/husb understand. b/p stable 11/04/17 14:30 Pt doing fine - has slept some, doing ok with the waiting. disc IUPC if cx unchanged to better eval. Disc difficult pattern with pit and ctxns that become too frequent but not build in strength. Aware cx /-1 clear fluid .. also reports mild headache. B/P stable 120-140s/80s 11/04/17 14:33 11/04/17 16:11 Pt doing better after ELYSE redosed....feeling a lot of pressure and vag check reveals 10/100/0 with caput. Pt has begun pushing. variables with delayed recovery 11/04/17 18:03 pt very uncomf with pressure with pushing despite bolus x2, making great effort - slow change and baby goes right back behind symph after push. disc VAVD and pt and husb want to proceed with c/s Vaginal Delivery - Labor and Delivery Amniotic Fluid Color: Meconium Stained ('mec' noted with SROM but no signs of mec now - clear fluid - no odor) Dilation Complete Date: 11/04/17 Dilation Complete Time: 15:50 Non-surgical Procedures: IUPC Cord Gases: Cord Gases Cord Blood PCO2 56.4 mmHg (37-60) 11/04/17 19:05 Cord Base Excess -8.7 mEq/L (-13.6--3.2) 11/04/17 19:05 Cord ABG pH 7.19 (7.10-7.37) 11/04/17 19:05 Cord VBG pH 7.30 (7.20-7.42) 11/04/17 19:05 Operative Report - Delivery Pre-op Diagnoses: IUP at 40+ wks, arrest of descent and intolerance to labor, GBS+ Post-op Diagnoses: same, delivered History of Prior Section: No Nulliparous Prior to Delivery: Yes Indications for Current Section: Arrest of Descent, Non-reas. Status Procedure: Unscheduled, Low Transverse Surgeon: Larisa Nam Software Development Project Manager: Adilene Dang Anesthesiologist: Vivek Funk Complications: Other (Specify) (head very low in pelvis with tight pelvic brim, difficulty getting around head - utilized vag hand to help elevate head) Findings: pt very sensitive to each tissue level - pain with stretching, cautery and touching. Given nitrous and also IV sedation. ut, ov and tubes all nl. Baby' s head very low - used vag hand to help elevate head, tightly wedged. Baby with low tone after del despite tactic stim, attempted delayed cord clamp but without response, the cord was clamped and baby handed to TRACTOR SWEEPER OPERATOR. Cord gases obtained. Placenta came out without problems. No lower uterine extension. Incision closed in double layer - good hemostasis. Good uterine tone. black showed reddish urine upon replacement but clearer at end of procedure. Fluid with light terminal mec IV Fluid (ml): 800 EBL: 800 Cord Gases: Cord Gases Cord Blood PCO2 56.4 mmHg (37-60) 11/04/17 19:05 Cord Base Excess -8.7 mEq/L (-13.6--3.2) 11/04/17 19:05 Cord ABG pH 7.19 (7.10-7.37) 11/04/17 19:05 Cord VBG pH 7.30 (7.20-7.42) 11/04/17 19:05 [place] Data BENITEZ: 11/01/17 Gestational Age: 40 week(s) and 3 day(s) Martinez Delivery Date: 11/04/17 Delivery Time: 18:57 Sex of : Male (Salvador) Score (1 Min): 1 Score (5 Min): 8 ICD10 Worksheet Patient Problems: Problems Problem Status Onset Elevated blood pressure complicating in third trimester, antepartum Acute GBS (group B Streptococcus carrier), +RV culture, currently Acute Meconium in amniotic fluid affecting management of mother in third trimester Acute S/P primary low transverse Acute
[2017-11-04] MEDS: HYDROCODONE/APAP 5/325 TAB PO PRN (23:11)
[2017-11-05] MEDS: SENNOSIDES/DOCUSATE SODIUM TAB PO SCH ×2 (00:34→15:35)
[2017-11-05] MEDS: ACETAMINOPHEN 325 MG TAB PO SCH ×3 (01:23→23:59)
[2017-11-05] MEDS: KETOROLAC 30 MG/1 ML SDV IVP SCH ×3 (04:00→17:51)
[2017-11-05 04:42] LABS: PLATELET COUNT 102 10^3/uL (150-400)
--- NOTE | 2017-11-05 13:10 | OBPP ---
Progress Note Assessment/Plan: Assessment: 1) s/p PCS secondary to arrest of descent and intol to labor POD # 1 - pt is stable 2) GHTN - BPs stable 3) Anemia - pt is asymptomatic Plan: Continue routine post-op care Pt may shower this pm and then remove dressing Will start Bifera BID Cont colace and bowel protocol BPs 130/80's; PIH labs wnl; Pt is asymptomatic Cont to monitor BPs and symptoms Plan for d/c home in 48 hrs 11/05/17 13:15 Subjective/ Course: 11/05/17 13:12 Pt seen and examined. Doing well, no complaints. Pain is controlled with Toradol. Not OOB yet, just sat up; aaron regular diet; black in place; no flatus yet. Mod lochia. Denies any f/c/n/v/CP or SOB. Working on BF baby boy. Denies any BOOTH's, visual changes and RUQ pain. No calf tenderness, +SCDs. Objective: 11/05/17 04:00 11/05/17 04:00 Patient ABO/Rh O POSITIVE 11/03/17 22:21 Uric Acid 6.7 mg/dL (2.5-6.8) 11/05/17 04:00 Total Bilirubin 0.4 mg/dL (0.1-1.4) 11/05/17 04:00 Conjugated Bilirubin 0.1 mg/dL (0.0-0.5) 11/05/17 04:00 Unconjugated Bilirubin 0.3 mg/dL (0.0-1.1) 11/05/17 04:00 AST 22 IU/L (14-46) 11/05/17 04:00 ALT 22 IU/L (9-52) 11/05/17 04:00 Lactate Dehydrogenase 588 IU/L (313-618) 11/05/17 04:00 Temp Pulse Resp BP Pulse Ox 36.6 C 93 18 136/82 H 95 11/05/17 11:56 11/05/17 11:56 11/05/17 11:56 11/05/17 11:56 11/05/17 11:56 Uterine Position/Fundal Height: Umbilicus -1 Uterine Tone: Firm Physical Exam - Physical Exam General Appearance: WD/WN, alert, no apparent distress Respiratory: lungs clear, normal breath sounds Cardiac/Chest: regular rate, rhythm Abdomen: normal bowel sounds, non-tender (appropriate tenderness), soft, flatus (not yet), incision (C/D/I with dressing in place), dressing (C/D/I with no shadowing) Extremities: non-tender, normal inspection (with SCDs in place) DTR- Lower Extremities: Plantar (R): 2+, Plantar (L): 2+ Skin: normal color, warm/dry Neuro/Psych: alert, normal mood/affect, oriented x 3
[2017-11-05] MEDS: IBUPROFEN 600 MG TAB PO SCH ×2 (17:09→23:00)
[2017-11-05] MEDS: HYDROCODONE/APAP 5/325 TAB PO PRN ×2 (17:09→20:50)
[2017-11-05] MEDS: IRON POLYSAC/IRON HEME 28 MG TAB PO SCH (20:49)
--- NOTE | 2017-11-05 21:47 | POSTANESTH ---
Post Anesthetic Evaluation Cardiovascular Status: Normal, Stable Respiratory Status: Normal, Stable Level of Consciousness/Mental Status: Can Participate in Eval Pain Control: Adequate, Prn Tx Ordered Nausea/Vomiting Control: Adequate, Prn Tx Ordered Complications Possibly Related to Anesthesia: None Noted
[2017-11-06] MEDS: IBUPROFEN 600 MG TAB PO SCH ×4 (05:03→22:55)
[2017-11-06] MEDS: HYDROCODONE/APAP 5/325 TAB PO PRN ×3 (05:03→23:26)
[2017-11-06] MEDS: ACETAMINOPHEN 325 MG TAB PO SCH ×5 (06:12→22:54)
[2017-11-06] MEDS: SENNOSIDES/DOCUSATE SODIUM TAB PO SCH ×3 (06:13→21:54)
--- NOTE | 2017-11-06 08:54 | OBPP ---
Progress Note Assessment/Plan: Assessment: Assessment: 1) s/p PCS secondary to arrest of descent and intol to labor POD # 2 - pt is stable 2) GHTN - BPs stable, high normal to low mild range. No new s/sx of PIH. Labs always normal. No changes or meds now. 3) Anemia - pt is asymptomatic BID iron. Plan: Continue cares, BP monitoring. Home tomorrow. Subjective/ Course: Babs is doing great - no issues at all. Baby Kyrie is doing great. Planning on home tomorrow. Denies any new s/sx of PIH. Objective: 11/05/17 04:00 11/05/17 04:00 Patient ABO/Rh O POSITIVE 11/03/17 22:21 Uric Acid 6.7 mg/dL (2.5-6.8) 11/05/17 04:00 Total Bilirubin 0.4 mg/dL (0.1-1.4) 11/05/17 04:00 Conjugated Bilirubin 0.1 mg/dL (0.0-0.5) 11/05/17 04:00 Unconjugated Bilirubin 0.3 mg/dL (0.0-1.1) 11/05/17 04:00 AST 22 IU/L (14-46) 11/05/17 04:00 ALT 22 IU/L (9-52) 11/05/17 04:00 Lactate Dehydrogenase 588 IU/L (313-618) 11/05/17 04:00 Temp Pulse Resp BP Pulse Ox 36.3 C 87 18 135/85 H 95 11/05/17 23:14 11/05/17 23:14 11/05/17 23:14 11/05/17 23:14 11/05/17 23:14 Uterine Position/Fundal Height: At Umbilicus Uterine Tone: Firm Physical Exam - Physical Exam Abdomen: incision (CDI w steri strips)
[2017-11-06] MEDS: IRON POLYSAC/IRON HEME 28 MG TAB PO SCH ×2 (09:00→21:54)
--- NOTE | 2017-11-06 12:28 | POSTANESTH ---
Post Anesthetic Evaluation Cardiovascular Status: Normal, Stable, Similar to Pre-Op Cond Respiratory Status: Normal, Stable, Similar to Pre-op Cond. Level of Consciousness/Mental Status: Can Participate in Eval, Alert and Oriented Pain Control: Adequate, Prn Tx Ordered Nausea/Vomiting Control: Adequate, Prn Tx Ordered Complications Possibly Related to Anesthesia: None Noted Notes: Pt seen and examined. Resting comfortably. Back site c/d/i, no e/e/e. Denies n/v/pruritis. Reports pain control good , on PO tylenol/nsaids. Able to ambulate/urinate. Block resolved w/o any ill effects from anesthesia.
[2017-11-07] MEDS: ACETAMINOPHEN 325 MG TAB PO SCH (04:42)
[2017-11-07] MEDS: IBUPROFEN 600 MG TAB PO SCH ×2 (04:44→13:03)
[2017-11-07] MEDS: IRON POLYSAC/IRON HEME 28 MG TAB PO SCH (09:17)
[2017-11-07] MEDS: SENNOSIDES/DOCUSATE SODIUM TAB PO SCH (09:18)
[2017-11-07] MEDS: HYDROCODONE/APAP 5/325 TAB PO PRN (09:18)
[2017-11-07 10:43] VITALS: BP 140/92
--- NOTE | 2017-11-07 12:36 | OBPP ---
Progress Note Assessment/Plan: Assessment: pod# 3 s/p PLTCS for intolerance of labor and arrest of descent gestational hypertension - stable breast feeding anemia plan: routine post care and discharge instructions iron 11/07/17 12:33 Subjective/ Course: Babs is doing great - no issues at all. Baby Kyrie is doing great. Planning on home tomorrow. Denies any new s/sx of PIH. 11/07/17 12:34 patient is doing well. pain is well controlled. normal lochia. breast feeding is going well. denies headache and changes in vision. ambulating. passing gas. ready to go home. had two bowel movements. Objective: 11/05/17 04:00 11/05/17 04:00 Patient ABO/Rh O POSITIVE 11/03/17 22:21 Uric Acid 6.7 mg/dL (2.5-6.8) 11/05/17 04:00 Total Bilirubin 0.4 mg/dL (0.1-1.4) 11/05/17 04:00 Conjugated Bilirubin 0.1 mg/dL (0.0-0.5) 11/05/17 04:00 Unconjugated Bilirubin 0.3 mg/dL (0.0-1.1) 11/05/17 04:00 AST 22 IU/L (14-46) 11/05/17 04:00 ALT 22 IU/L (9-52) 11/05/17 04:00 Lactate Dehydrogenase 588 IU/L (313-618) 11/05/17 04:00 Temp Pulse Resp BP Pulse Ox 36.6 C 84 20 140/92 H 96 11/07/17 08:30 11/07/17 08:30 11/07/17 04:30 11/07/17 08:30 11/07/17 08:30 Physical Exam - Physical Exam Neck: non-tender, full range of motion, supple Respiratory: chest non-tender, lungs clear, normal breath sounds Cardiac/Chest: normal peripheral pulses, regular rate, rhythm Abdomen: normal bowel sounds, non-tender, other (fundus firm and non tender) Extremities: normal range of motion, non-tender, normal inspection, normal capillary refill Skin: normal color, warm/dry, other (incision clean dry and intact) Neuro/Psych: no motor/sensory deficits, alert, normal mood/affect, oriented x 3
--- NOTE | 2017-11-07 12:43 | OBGCSDC ---
General Delivery Information - General Info : 1 Para: 1 Abortions: 0 Type: Primary L&D Analgesia/Anesthesia Type: Epidural Admission Date: 11/03/17 Labs: Patient ABO/Rh O POSITIVE 11/03/17 22:21 Hct 26.3 % (38.0-47.0) L 11/05/17 04:00 - Hospital Course Antepartum: 11/04/17 05:41 IUP @ 40 2/7 wks with c/o +brownish LOF, elev BPs on admission 160/100's; asymptomatic. Transfer of care at 20+weeks from [facility]. +GBS Intrapartum: 11/04/17 05:31 Pt seen and examined. She states pain with ctx's 3-4/10. Denies any BOOTH's, visual changes and states RUQ pain improved since baby boy moved down in pelvis. Good FM noted. 11/04/17 10:23 Pt doing fine with ELYSE, was pretty uncomf with back pain prior to ELYSE. Very sleepy. disc pitocin and pt/husb understand. b/p stable 11/04/17 14:30 Pt doing fine - has slept some, doing ok with the waiting. disc IUPC if cx unchanged to better eval. Disc difficult pattern with pit and ctxns that become too frequent but not build in strength. Aware cx 390/-1 clear fluid .. also reports mild headache. B/P stable 120-140s/80s 11/04/17 14:33 11/04/17 16:11 Pt doing better after ELYSE redosed....feeling a lot of pressure and vag check reveals 10/100/0 with caput. Pt has begun pushing. variables with delayed recovery 11/04/17 18:03 pt very uncomf with pressure with pushing despite bolus x2, making great effort - slow change and baby goes right back behind symph after push. disc VAVD and pt and husb want to proceed with c/s : Babs is doing great - no issues at all. Baby Kyrie is doing great. Planning on home tomorrow. Denies any new s/sx of PIH. 11/07/17 12:34 patient is doing well. pain is well controlled. normal lochia. breast feeding is going well. denies headache and changes in vision. ambulating. passing gas. ready to go home. had two bowel movements. Vaginal - Diagnosis Amniotic Fluid Color: Meconium Stained ('mec' noted with SROM but no signs of mec now - clear fluid - no odor) - Procedures Non-surgical Procedures: IUPC - Delivery Providers Surgeon: Larisa Nam Videotape Recording Engineer: Adilene Dang Anesthesiologist: Vivek Funk - Delivery Indications for Current Section: Arrest of Descent, Non-reas. Status Non-surgical Procedures: IUPC Surgical Procedures: Unscheduled, Low Transverse Intra-op Complications: Other (Specify) (head very low in pelvis with tight pelvic brim, difficulty getting around head - utilized vag hand to help elevate head) EBL: 800 Data BENITEZ: 11/01/17 Gestational Age: 40 week(s) and 6 day(s) Martinez Delivery Date: 11/04/17 Delivery Time: 18:57 Sex of Infant: Male Weight (gm): 3428 g Score (1 Min): 1 Score (5 Min): 8 Discharge Information - Discharge Information Prescriptions: Hydrocodone/APAP 5/325 [[employer] 5/325 (*)] 1 - 2 tab PO Q4HRS PRN #10 tab PRN Reason: Pain, Moderate Ibuprofen [Motrin (*)] 600 mg PO Q6HRS #30 tab Condition: Good Instruction/Follow Up: One Week (blood pressure check), Four Weeks (mood check with post wellness center), Six Weeks (post visit)
== END 2017-11-07 13:15 | disposition home or self-care (01) | DRG 765 ==
LOC: FLD 20:45 → FOB 11-04 22:20
PROVIDERS: ADMIT Obstetrics & Gynecology; ATTEND Obstetrics & Gynecology
PROC: 10D00Z1 Extraction of Products of Conception, Low, Open Approach (ICD-10-PCS; principal; 2017-11-04)
PROC: 10H07YZ Insertion of Other Device into Products of Conception, Via Natural or Artificial Opening (ICD-10-PCS; 2017-11-07)
DX: O62.1 Secondary uterine inertia (principal); O99.824 Streptococcus B carrier state complicating childbirth; O13.4 Gestational [pregnancy-induced] hypertension without significant proteinuria, complicating childbirth; O99.12 Other diseases of the blood and blood-forming organs and certain disorders involving the immune mechanism complicating childbirth; D69.6 Thrombocytopenia, unspecified; Z37.0 Single live birth; Z3A.40 40 weeks gestation of pregnancy
CPT/HCPCS: J0290; J0690; J1885; J2210; J2274; J2590; J2704; J3010; J3105

== ENCOUNTER → 2018-05-16 | Outpatient (CLI) | payer OTHER | LOC: CIMAGING 08:45 | PROVIDERS: ATTEND Family Medicine | DX: R05 Cough (principal); J40 Bronchitis, not specified as acute or chronic | CPT/HCPCS: 71046-PO ==